=== PATIENT | male | born 1965 | race African-American/Black ===

== ENCOUNTER 2019-10-20 17:18 | Emergency (ER) | payer MEDICAID, MEDICARE ==
[~2019-10-20] VITALS: Ht 175.3 cm; Wt 109.0 kg
[2019-10-20] MEDS ORDERED: ACETAMINOPHEN 325MG TABLET PO STA (18:30)
[2019-10-20 19:40] VITALS: BP 149/94
== END 2019-10-20 20:01 | disposition home or self-care (01) ==
LOC: ER 17:18
DX: B34.9 Viral infection, unspecified (principal); E11.9 Type 2 diabetes mellitus without complications; I10 Essential (primary) hypertension; G40.909 Epilepsy, unspecified, not intractable, without status epilepticus; Z88.2 Allergy status to sulfonamides; Z98.890 Other specified postprocedural states; Z88.0 Allergy status to penicillin; Z91.010 Allergy to peanuts
CPT/HCPCS: 71045; 87804; 99284

== ENCOUNTER 2019-11-23 05:36 | Emergency (ER) | payer MEDICARE ==
[~2019-11-23] VITALS: Ht 172.7 cm; Wt 111.0 kg
[2019-11-23 05:42] VITALS: BP 159/100
[2019-11-23] MEDS ORDERED: ACETAMINOPHEN 325MG TABLET PO ONE (06:30)
== END 2019-11-23 08:19 | disposition home or self-care (01) ==
LOC: ER 05:36
DX: M25.512 Pain in left shoulder (principal); M25.511 Pain in right shoulder; R22.32 Localized swelling, mass and lump, left upper limb; G40.909 Epilepsy, unspecified, not intractable, without status epilepticus; I10 Essential (primary) hypertension; E11.9 Type 2 diabetes mellitus without complications; Z88.0 Allergy status to penicillin; Z88.2 Allergy status to sulfonamides; Z91.010 Allergy to peanuts; Z98.890 Other specified postprocedural states; Y04.0XXA Assault by unarmed brawl or fight, initial encounter; Y07.59 Other non-family member, perpetrator of maltreatment and neglect; Y93.89 Activity, other specified; Y92.018 Other place in single-family (private) house as the place of occurrence of the external cause
CPT/HCPCS: 73030; 73130; 99284

== ENCOUNTER 2020-05-14 13:06 | Emergency (ER) | payer MEDICARE ==
[~2020-05-14] VITALS: Ht 175.3 cm; Wt 105.0 kg
[2020-05-14 13:19] VITALS: BP 160/97
[2020-05-14 14:58] LABS: CLARITY URINE CLEAR (CLEAR); COLOR URINE YELLOW (YELLOW); KETONES URINE NEGATIVE (NEGATIVE); LEUKOCYTE ESTERASE URINE TRACE (NEGATIVE); NITRITE URINE NEGATIVE (NEGATIVE); OCCULT BLOOD URINE NEGATIVE (NEGATIVE); PROTEIN URINE TRACE (NEGATIVE); SPECIFIC GRAVITY URINE 1.035 (1.005-1.030); UROBILINOGEN URINE 0.2 E.U./dL (0.2-1.0)
== END 2020-05-14 17:24 | disposition home or self-care (01) ==
LOC: ER 14:22
DX: N12 Tubulo-interstitial nephritis, not specified as acute or chronic (principal); I10 Essential (primary) hypertension; E11.9 Type 2 diabetes mellitus without complications; G40.909 Epilepsy, unspecified, not intractable, without status epilepticus; Z88.0 Allergy status to penicillin; Z88.2 Allergy status to sulfonamides; Z91.018 Allergy to other foods; Z79.899 Other long term (current) drug therapy
CPT/HCPCS: 81003; 99283

== ENCOUNTER 2020-06-19 15:20 | Emergency (ER) | payer MEDICARE ==
[~2020-06-19] VITALS: Ht 175.3 cm; Wt 108.0 kg
[2020-06-19 15:39] VITALS: BP 168/100
== END 2020-06-19 22:21 | disposition left against medical advice (07) ==
LOC: ER 15:20
DX: Z53.21 Procedure and treatment not carried out due to patient leaving prior to being seen by health care provider (principal)